=== PATIENT | male | born 1985 | race Two or more races ===

== ENCOUNTER 2023-01-25 07:48 | Emergency (ER) | payer OTHER ==
[~2023-01-25] VITALS: Ht 170.2 cm; Wt 116.4 kg
[2023-01-25 07:50] VITALS: TEMP 98.4
[2023-01-25] MEDS ORDERED: IBUP-1492 PO (10:12)
[2023-01-25 10:49] VITALS: BP 155/82; PULSE 80; RESP 16
== END 2023-01-25 10:57 | disposition home or self-care (01) ==
LOC: EMS 07:53
DX: S20.212A Contusion of left front wall of thorax, initial encounter (principal); W18.39XA Other fall on same level, initial encounter; Y93.89 Activity, other specified; Y92.89 Other specified places as the place of occurrence of the external cause; Y99.0 Civilian activity done for income or pay
CPT/HCPCS: 71046; 99283